=== PATIENT | female | born 1945 | race African-American/Black ===

== ENCOUNTER → 2020-06-03 | Outpatient (CLI) | payer MEDICARE ==
[~2020-06-03] MED LIST: CRESTOR5 MG PO; FAMO20TA5 PO; HYDR-3164 PO; LEVO100T5 PO; PROP10DR14 OP
== END | disposition home or self-care (01) ==
LOC: LAB 14:09
PROVIDERS: ATTEND Surgery
DX: Z01.818 Encounter for other preprocedural examination (principal); Z11.59 Encounter for screening for other viral diseases; R22.40 Localized swelling, mass and lump, unspecified lower limb
CPT/HCPCS: U0003-CS

== ENCOUNTER 2020-06-07 06:04 | Day surgery (SDC) | payer MEDICARE ==
[~2020-06-07] VITALS: Ht 154.9 cm; Wt 83.0 kg
[~2020-06-07 06:04] MED LIST changes: -HYDR-3164 PO
[2020-06-07] MEDS ORDERED: ONDANSETRON PF 4 MG/2 ML VIAL. IV PRN (07:00)
[2020-06-07] MEDS ORDERED: fentaNYL PF VIAL 100 MCG/2 ML VIAL IV PRN ×2 (07:00)
[2020-06-07] MEDS ORDERED: IV RINGERS,LACTATED 1000ML 1,000 ML IV SCH (07:00)
[2020-06-07] MEDS ORDERED: PROCHLORPERAZINE 10 MG/2 ML VIAL. IV PRN (07:00)
[2020-06-07] MEDS ORDERED: SEVOFLURANE 31 TO 60 MINUTES. IH ONE (07:18)
[2020-06-07] MEDS ORDERED: PROPOFOL 10 MG/ML (20ML) VIAL. IV ONE (07:18)
[2020-06-07] MEDS ORDERED: LIDOCAINE 1%/EPI 1:100,000 20 ML VIAL. ONE (07:18)
[2020-06-07] MEDS ORDERED: DEXAMETHASONE SOD PHOS 4 MG/ML VIAL ONE (07:18)
[2020-06-07] MEDS ORDERED: ONDANSETRON PF 4 MG/2 ML VIAL. ONE (07:18)
[2020-06-07] MEDS ORDERED: LIDOCAINE 2% PF 5 ML VIAL. ONE (07:18)
[2020-06-07] MEDS ORDERED: fentaNYL PF VIAL 100 MCG/2 ML VIAL ONE (07:18)
[2020-06-07] MEDS ORDERED: SUCCINYLCHOLINE 200 MG/10 ML VIAL. ONE (07:36)
[2020-06-07] MEDS ORDERED: HYDR-3164 PO ×2 (08:40→09:05)
--- NOTE | 2020-06-07 08:41 | PDOC4 ---
Operative Note Operative Note Operative Note: Preoperative Diagnosis: Right posterior thigh mass Postoperative Diagnosis: Same Procedure: Excision of right posterior thigh mass Surgeon: [employer]: Geo DIAZ Anesthesia: General EBL: 10 mL Specimen: Posterior thigh mass to pathology, 10 x 6 cm Drains: None Complications: None Indication: The patient is a 74-year-old female presented with an enlarging posterior thigh mass for which she requests excision. The risks of surgery were discussed which include bleeding, infection, recurrence, pain, anesthetic risk, potential need for additional surgery procedure. She understands and would like to proceed Description: The patient was taken to the operating room and placed supine on the operating table. General anesthesia was performed. She was then placed prone. The right posterior thigh was prepped with ChloraPrep and draped in a standard surgical manner. An elliptical incision was made around the mass which showed some protrusion and stretching of the skin. Cautery dissection was carried down subcutaneous tissues. The mass represented a large lipoma with multiple lobules. This was fully freed up from the surrounding tissues with a combination of cautery and blunt dissection. The mass measured 10 x 6 cm and was sent to pathology for evaluation. Hemostasis was achieved with cautery. The subcutaneous tissue was approximated with 3-0 Vicryl. The skin was closed with 4-0 Monocryl. Steri-Strips and a sterile dressing were applied. The patient tolerated the procedure well and was sent to the recovery room in stable condition. At the end of the case all counts were correct. DIXON BAUTISTA MD Jun 07, 2020 08:41
[2020-06-07] MEDS ORDERED: HYDROcodone/APAP 5/325MG 1 TAB TABLET PO ONE (08:45)
--- NOTE | 2020-06-07 08:45 | DISCH ---
DISCHARGE INSTRUCTIONS Condition on Discharge Condition on Discharge: Stable Activity After Discharge Activity Instructions for Disc: Resume previous activity Diet after Discharge Diet after Discharge: Regular Wound Incision Care Wound/Incision Care: Other, see below (keep dressing clean and dry X 72 hours, may then remove and shower) Follow-Up Follow up with: Dr Bautista in 2 weeks in office, call for appt [phone] DIXON BAUTISTA MD Jun 07, 2020 08:45
[2020-06-07 09:15] VITALS: BP 131/79
--- NOTE | 2020-06-09 12:07 | PATHOLOGY ---
[facility] Accession Number: [id number] . 01 Material submitted: . thigh - RIGHT POSTERIOR THIGH MASS. Modifiers: right, posterior . 01 Clinical history: . RIGHT POSTERIOR THIGH MASS . 02 Diagnosis: Skin and soft tissue "right posterior thigh mass", excision: - Mature lobulated adipose tissue, compatible with lipoma. - Unremarkable skin. (MLK:nadia; 06/08/2020) MBR 06/09/2020 1124 Local . 02 Electronically signed: . Keith Lara MD, Pathologist NPI- [id number] . 01 Gross description: . The specimen is received in formalin, labeled "Ирина Estes, right posterior thigh mass". Received are multiple segments of yellow-moya lobulated tissue measuring 10.8 x 9.7 x 3.9 cm in aggregate dimensions. There is an attached ellipse of light brown skin measuring 3.2 x 1.3 cm. Sectioning reveals bright yellow cut surfaces with no grossly distinct nodules or lesions. The specimen is submitted representatively in cassette A1 and A2. ([facility]; 06/07/2020) QA/QA 06/07/2020 1654 Local . 02 Pathologist provided ICD-10: D17.23 . 02 CPT . 273699 Specimen Comment: A courtesy copy of this report has been sent to [phone], [phone] Specimen Comment: [id number] Specimen Comment: Report sent to / DR FINCH Performed at: 01 [facility] [address], [place] [id number] MD Peter Luz MD Phone: [phone] Performed at: 02 [facility] [address] [place], [place] [id number] MD Favio Galvan MD Phone: [phone]
== END 2020-06-07 09:45 | disposition home or self-care (01) ==
LOC: SURG 06:04
PROVIDERS: ATTEND Surgery
DX: R22.41 Localized swelling, mass and lump, right lower limb (principal); Z88.0 Allergy status to penicillin; Z88.5 Allergy status to narcotic agent; Z88.2 Allergy status to sulfonamides; Z79.899 Other long term (current) drug therapy; Z98.890 Other specified postprocedural states
CPT/HCPCS: 11406; 88304; A7015; J0330; J1100; J1956; J2405; J2704; J3010; J7120; J3490